=== PATIENT | male | born 1940 | race African-American/Black ===

== ENCOUNTER 2018-07-01 14:39 | Emergency (ER) | payer MEDICARE ==
[~2018-07-01] VITALS: Ht 175.3 cm; Wt 81.6 kg
[2018-07-01 14:52] VITALS: BP 96/63
[2018-07-01] MEDS ORDERED: AMLODIPINE BESY10 MG GT (14:52)
[2018-07-01] MEDS ORDERED: DOCUSATE SODIU100 MG GT (14:54)
[2018-07-01] MEDS ORDERED: DONEPEZIL HCL10 MG GT (14:54)
[2018-07-01] MEDS ORDERED: ATORVASTATIN CA40 MG GT (14:54)
[2018-07-01] MEDS ORDERED: PLAVIX75 MG GT (14:54)
[2018-07-01] MEDS ORDERED: BENAZEPRIL HCL40 MG GT (14:54)
[2018-07-01] MEDS ORDERED: DULCOLAX10 MG RC (14:56)
[2018-07-01] MEDS ORDERED: FLEET ENEMA133 ML RECTAL (14:56)
[2018-07-01] MEDS ORDERED: EPOGEN10000 UNIT SUBQ (14:56)
[2018-07-01] MEDS ORDERED: FERROUS SULFAT325 MG GT (14:56)
[2018-07-01] MEDS ORDERED: MULTIVITAMINS1 EAC8 ORAL (14:58)
[2018-07-01] MEDS ORDERED: FLORASTOR250 MG GT (14:58)
[2018-07-01] MEDS ORDERED: MULTI-DELYN237 ML GT (14:58)
[2018-07-01] MEDS ORDERED: MILK OF MA2400 MG/10 ORAL (14:58)
[2018-07-01] MEDS ORDERED: Cefepime HCl 1 GM in NS 55 ML IV SCH (15:00)
[2018-07-01] MEDS ORDERED: VITAMIN C500 M1 GT (15:00)
[2018-07-01] MEDS ORDERED: PROTONIX40 M2 GT (15:00)
[2018-07-01] MEDS ORDERED: Albuterol/Ipratropium 3ml neb HHN ONE (15:00)
[2018-07-01] MEDS ORDERED: UTI-STAT L3875 MG/31 GT (15:00)
[2018-07-01] MEDS ORDERED: ACETAMINOP160 MG/52 ORAL (15:00)
--- NOTE | 2018-07-01 15:10 | Emergency Room Report ---
History of Present Illness General Chief Complaint: Abnormal Labs Source: Patient, Medical Record Present Illness HPI Patient is a 77-year-old male brought in by EMS for abnormal laboratory studies. Patient prior history of diabetes as well as renal disease. He was noted to have a tracheostomy and is had not chronically on a vent. The patient had been noted to be having a productive cough which per patient's family member is chronically present. The patient was noted to have yellow thick sputum. The patient had not been vomiting or having any diarrhea. Allergies: Coded Allergies: No Known Allergies (Unverified , 07/01/18) Patient History Past Medical History: see triage record Reviewed Nursing Documentation: PMH: Agreed; PSxH: Agreed Nursing Documentation-PMH Past Medical History: No History, Except For Hx Gastrointestinal Problems: Yes - Dysphagia, GERD Hx Neurological Problems: Yes - Dementia, Alzheimer's disease Review of Systems All Other Systems: negative except mentioned in HPI Physical Exam Vital Signs Date Time Temp Pulse Resp B/P (MAP) Pulse Ox O2 Delivery O2 Flow Rate FiO2 07/01/18 14:47 98.0 84 18 91/58 98 Room Air 98.1 Sp02 EP Interpretation: reviewed, normal General Appearance: no apparent distress, alert, non-toxic, thin, Chronically Ill Head: atraumatic ENT: normal ENT inspection, hearing grossly normal Neck: normal inspection, full range of motion, supple, no bony tend, tracheotomy Respiratory: normal inspection, no respiratory distress, no retraction, no wheezing, rhonchi Cardiovascular #1: regular rate, rhythm, no edema Gastrointestinal: normal inspection, normal bowel sounds, non tender, soft, no guarding, no hernia Genitourinary: no CVA tenderness Musculoskeletal: normal inspection, back normal, normal range of motion Neurologic: normal inspection, alert, responsive, top carrier III-XII nml as tested, speech normal Psychiatric: normal inspection, judgement/insight normal, mood/affect normal Skin: normal inspection, normal color, no rash Medical Decision Making Diagnostic Impression: Primary Impression: Anemia Additional Impressions: Tracheostomy dependence Pneumonia ER Course Patient presented for low hemoglobin. The differential diagnosis included was not limited to anemia chronic disease, GI bleed, renal insufficiency, hemolysis , among others.Because of complexity of patient's case laboratory testing and imaging studies were ordered.The laboratory testing was notable for significant anemia with hemoglobin 7.8. Chest x-ray one view read by radiology showed some infiltrate at the left lung base concerning for pneumonia. The patient was started on IV fluids as well as IV antibiotics. Patient was discussed with Dr. Bhardwaj for capitated facility due to capitated hospitalist. Labs Test 07/01/18 15:15 White Blood Count 6.3 K/UL (4.8-10.8) Red Blood Count 3.01 M/UL (4.70-6.10) Hemoglobin 7.9 G/DL (14.2-18.0) Hematocrit 26.3 % (42.0-52.0) Mean Corpuscular Volume 87 FL (80-99) Mean Corpuscular Hemoglobin 26.3 PG (27.0-31.0) Mean Corpuscular Hemoglobin Concent 30.1 G/DL (32.0-36.0) Red Cell Distribution Width 14.0 % (11.6-14.8) Platelet Count 265 K/UL (150-450) Mean Platelet Volume 6.1 FL (6.5-10.1) Neutrophils (%) (Auto) % (45.0-75.0) Lymphocytes (%) (Auto) % (20.0-45.0) Monocytes (%) (Auto) % (1.0-10.0) Eosinophils (%) (Auto) % (0.0-3.0) Basophils (%) (Auto) % (0.0-2.0) Prothrombin Time 10.0 SEC (9.30-11.50) Prothromb Time International Ratio 0.9 (0.9-1.1) Activated Partial Thromboplast Time 24 SEC (23-33) Sodium Level 143 MMOL/L (136-145) Potassium Level 4.3 MMOL/L (3.5-5.1) Chloride Level 106 MMOL/L (98-107) Carbon Dioxide Level 35 MMOL/L (21-32) Anion Gap 2 mmol/L (5-15) Blood Urea Nitrogen 29 mg/dL (7-18) Creatinine 1.0 MG/DL (0.55-1.30) Estimat Glomerular Filtration Rate mL/min (>60) Glucose Level 65 MG/DL (74-106) Lactic Acid Level 1.60 mmol/L (0.4-2.0) Calcium Level 8.9 MG/DL (8.5-10.1) Phosphorus Level 2.8 MG/DL (2.5-4.9) Magnesium Level 2.2 MG/DL (1.8-2.4) Total Bilirubin 0.2 MG/DL (0.2-1.0) Aspartate Amino Transf (AST/SGOT) 31 U/L (15-37) Alanine Aminotransferase (ALT/SGPT) 48 U/L (12-78) Alkaline Phosphatase 57 U/L (46-116) Total Creatine Kinase 90 U/L (26-308) Creatine Kinase MB 1.7 NG/ML (0.0-3.6) Creatine Kinase MB Relative Index 1.8 Troponin I 0.000 ng/mL (0.000-0.056) Total Protein 7.2 G/DL (6.4-8.2) Albumin 2.8 G/DL (3.4-5.0) Globulin 4.4 g/dL Albumin/Globulin Ratio 0.6 (1.0-2.7) Last Vital Signs Date Time Temp Pulse Resp B/P (MAP) Pulse Ox O2 Delivery O2 Flow Rate FiO2 07/01/18 14:52 82 19 96/63 100 Room Air 07/01/18 14:47 98.0 98.1 Status: unchanged Disposition: XFER SHT-TRM HOSP Condition: Serious Tom Olivares MD Jul 01, 2018 15:10
--- NOTE | 2018-07-01 15:43 | Diagnostic Imaging Report ---
Indication: Shortness of breath Technique: One view of the chest Comparison: none Findings: There is some infiltrate at the left lung base. The pleural spaces and right lung appear clear. There is a tracheostomy. Impression: Left basilar infiltrate, concerning for pneumonia
[2018-07-01 15:45] LABS: HEMATOCRIT 26.3 % (42.0-52.0); HEMOGLOBIN 7.9 G/DL (14.2-18.0); MEAN CORPUSCULAR VOLUME 87 FL (80-99); PLATELET COUNT 265 K/UL (150-450); RED BLOOD COUNT 3.01 M/UL (4.70-6.10); WHITE BLOOD COUNT 6.3 K/UL (4.8-10.8)
[2018-07-01 15:58] LABS: ANION GAP 2 mmol/L (5-15); BLOOD UREA NITROGEN 29 mg/dL (7-18); CALCIUM 8.9 MG/DL (8.5-10.1); CARBON DIOXIDE 35 MMOL/L (21-32); CHLORIDE 106 MMOL/L (98-107); POTASSIUM 4.3 MMOL/L (3.5-5.1); SODIUM 143 MMOL/L (136-145)
[2018-07-01 16:07] LABS: INR 0.9 (0.9-1.1)
[2018-07-01 16:25] LABS: ALANINE AMINOTRANSFERASE 48 U/L (12-78); ALBUMIN 2.8 G/DL (3.4-5.0); ALBUMIN/GLOBULIN RATIO 0.6 (1.0-2.7); ALKALINE PHOSPHATASE 57 U/L (46-116); ASPARTATE AMINO TRANSFERASE 31 U/L (15-37); BILIRUBIN,TOTAL 0.2 MG/DL (0.2-1.0); CKMB 1.7 NG/ML (0.0-3.6); CREATINE KINASE 90 U/L (26-308); PHOSPHORUS 2.8 MG/DL (2.5-4.9)
[2018-07-01 17:52] VITALS: BP 125/76
[2018-07-01 18:59] VITALS: BP 125/76
--- NOTE | 2018-07-03 12:42 | Cardiology Report ---
APPROVED REPORT EKG Measurement Heart [id number] Normal sinus rhythm Normal ECG
== END 2018-07-01 18:59 | disposition short-term general hospital (02) ==
LOC: EDBD 14:39 → EMR 15:50
DX: D64.9 Anemia, unspecified (principal); J18.9 Pneumonia, unspecified organism; E11.9 Type 2 diabetes mellitus without complications; N28.9 Disorder of kidney and ureter, unspecified; G30.9 Alzheimer's disease, unspecified; F02.80 Dementia in other diseases classified elsewhere, unspecified severity, without behavioral disturbance, psychotic disturbance, mood disturbance, and anxiety; Z93.0 Tracheostomy status
CPT/HCPCS: 36415; 71045; 80053; 82550; 82553; 83605; 83735; 84100; 84484; 85007; 85025; 85610; 85730; 86850; 86900; 86901; 87040; 93005; 94640; 94664; 96365; 96366; 96368; 99284; J0692; J7620